=== PATIENT | male | born 1960 ===

== ENCOUNTER → 2018-02-08 21:29 | Outpatient (REF) | payer OTHER, SELFPAY ==
[2018-02-08 22:42] LABS: Add Manual Diff / Slide Review NO; Basophils Percent Auto 0.5 % (0-2); Eosinophils Percent Auto 4.1 % (2-4); Hematocrit 55.8 % (41-53); Hemoglobin 18.9 g/dL (13.5-17.5); Mean Corpuscular Hemoglobin 30.5 PG (26-34); Mean Corpuscular Volume 89.7 fL (80-100); Monocytes Percent Auto 9.1 % (3-14); Neutrophils Absolute Auto 4900 /uL (3000-5900); Neutrophils Percent Auto 62.3 % (50-75); Platelet Count 178 X10^3/uL (150-400); Red Blood Cell Count 6.22 X10^6/uL (4.5-5.9); Red Cell Distribution Width 14.4 % (11.6-14.8); White Blood Cell Count 7.8 X10^3/uL (4.5-11.0)
[2018-02-09 02:25] LABS: Alanine Aminotransferase 76 IU/L (21-72); Albumin 4.5 g/dL (3.5-5.0); Alkaline Phosphatase 58 U/L (38-126); Aspartate Aminotransferase 41 IU/L (17-59); BUN Creatinine Ratio 20.8 (6-22); Bilirubin Total 0.9 mg/dL (0.2-1.3); Blood Urea Nitrogen 25 mg/dL (9-20); Carbon Dioxide 25 mmol/L (22-32); Chloride 103 mmol/L (98-107); Estimated Glomerular Filt Rate > 60.0 mL/min (>60); Globulin 2.3 g/dL (1.7-4.1); Glucose 101 mg/dL (70-100); HEMOLYSIS 15 (0-50); Potassium 3.9 mmol/L (3.4-5.1); Sodium 142 mmol/L (137-145); Total Protein 6.8 g/dL (6.3-8.2)
[2018-02-10 14:21] LABS: Sex Hormone Binding Globulin 26 nmol/L (22-77)
[2018-02-10 16:12] LABS: Estradiol 31 pg/mL (< 40)
[2018-02-11 14:23] LABS: PSA Total 0.24 ng/mL (< 4.01)
[2018-02-12 15:36] LABS: Testosterone Total 376 ng/dL (250-1100)
== END ==
LOC: LAB 21:29
PROVIDERS: Visit Provider Naturopath
DX: E29.1 Testicular hypofunction (principal); M54.5 Low back pain; R94.4 Abnormal results of kidney function studies; R94.5 Abnormal results of liver function studies
CPT/HCPCS: 80053; 82670; 84153; 84154; 84270; 84402; 84403; 85025

== ENCOUNTER → 2018-02-17 22:22 | Outpatient (REF) | payer OTHER, SELFPAY ==
[2018-02-17 22:37] LABS: Add Manual Diff / Slide Review NO; Alanine Aminotransferase 74 IU/L (21-72); Albumin Globulin Ratio 1.9 (1.0-2.8); Alkaline Phosphatase 75 U/L (38-126); Aspartate Aminotransferase 37 IU/L (17-59); BUN Creatinine Ratio 20.8 (6-22); Basophils Percent Auto 0.3 % (0-2); Bilirubin Total 1.5 mg/dL (0.2-1.3); Blood Urea Nitrogen 25 mg/dL (9-20); C-Reactive Protein Quant 0.6 mg/dL (<1.0); Calcium 10.3 mg/dL (8.4-10.2); Carbon Dioxide 26 mmol/L (22-32); Chloride 99 mmol/L (98-107); Eosinophils Percent Auto 2.6 % (2-4); Estimated Glomerular Filt Rate > 60.0 mL/min (>60); Globulin 2.7 g/dL (1.7-4.1); Glucose 102 mg/dL (70-100); HEMOLYSIS < 15 (0-50); Hematocrit 57.5 % (41-53); Hemoglobin 20.1 g/dL (13.5-17.5); Lymphocytes Percent Auto 21.3 % (25-40); Mean Corpuscular HGB Conc 34.9 % (30-36); Mean Corpuscular Hemoglobin 30.7 PG (26-34); Monocytes Percent Auto 9.4 % (3-14); Neutrophils Absolute Auto 6100 /uL (3000-5900); Neutrophils Percent Auto 66.4 % (50-75); Platelet Count 203 X10^3/uL (150-400); Potassium 4.1 mmol/L (3.4-5.1); Red Blood Cell Count 6.53 X10^6/uL (4.5-5.9); Red Cell Distribution Width 14.1 % (11.6-14.8); Sodium 142 mmol/L (137-145); Total Protein 7.7 g/dL (6.3-8.2); Uric Acid 6.3 mg/dL (3.5-8.5); White Blood Cell Count 9.2 X10^3/uL (4.5-11.0)
== END ==
LOC: LAB 22:22
PROVIDERS: Visit Provider Naturopath
DX: M79.641 Pain in right hand (principal)
CPT/HCPCS: 80053; 84550; 85025; 86140

== ENCOUNTER → 2018-05-10 20:48 | Outpatient (REF) | payer OTHER, SELFPAY ==
[2018-05-10 21:39] LABS: Add Manual Diff / Slide Review NO; Basophils Absolute Auto 100 /uL (0-100); Basophils Percent Auto 0.8 % (0-2); Eosinophils Absolute Auto 100 /uL (0-450); Eosinophils Percent Auto 1.3 % (2-4); Hematocrit 54.7 % (41-53); Hemoglobin 18.2 g/dL (13.5-17.5); Lymphocytes Absolute Auto 1900 /uL (1100-4500); Mean Corpuscular HGB Conc 33.4 % (30-36); Mean Corpuscular Hemoglobin 29.8 PG (26-34); Mean Corpuscular Volume 89.3 fL (80-100); Monocytes Absolute Auto 600 /uL (0-900); Monocytes Percent Auto 7.7 % (3-14); Neutrophils Absolute Auto 5400 /uL (1500-7000); Neutrophils Percent Auto 67.2 % (50-75); Platelet Count 180 X10^3/uL (150-400); Red Blood Cell Count 6.12 X10^6/uL (4.5-5.9); White Blood Cell Count 8.1 X10^3/uL (4.5-11.0)
[2018-05-10 22:14] LABS: Ferritin 68.6 ng/mL (17.9-464)
== END ==
LOC: LAB 20:48
PROVIDERS: Visit Provider Physician Assistant
DX: E29.1 Testicular hypofunction (principal); D75.1 Secondary polycythemia
CPT/HCPCS: 36415; 82728; 85025

== ENCOUNTER → 2018-07-03 21:10 | Outpatient (REF) | payer OTHER, SELFPAY ==
[2018-07-03 21:36] LABS: Add Manual Diff / Slide Review NO; Basophils Absolute Auto 100 /uL (0-100); Basophils Percent Auto 0.7 % (0-2); Eosinophils Absolute Auto 100 /uL (0-450); Eosinophils Percent Auto 1.3 % (2-4); Hematocrit 56.3 % (41-53); Hemoglobin 19.1 g/dL (13.5-17.5); Lymphocytes Absolute Auto 1500 /uL (1100-4500); Lymphocytes Percent Auto 20.6 % (25-40); Mean Corpuscular Hemoglobin 29.7 PG (26-34); Mean Corpuscular Volume 87.5 fL (80-100); Monocytes Absolute Auto 600 /uL (0-900); Monocytes Percent Auto 7.7 % (3-14); Neutrophils Absolute Auto 5200 /uL (1500-7000); Neutrophils Percent Auto 69.7 % (50-75); Platelet Count 179 X10^3/uL (150-400); Red Blood Cell Count 6.44 X10^6/uL (4.5-5.9); Red Cell Distribution Width 13.8 % (11.6-14.8); White Blood Cell Count 7.5 X10^3/uL (4.5-11.0)
[2018-07-03 21:40] LABS: Alanine Aminotransferase 78 IU/L (21-72); Albumin 4.5 g/dL (3.5-5.0); Albumin Globulin Ratio 1.7 (1.0-2.8); Alkaline Phosphatase 70 U/L (38-126); Aspartate Aminotransferase 41 IU/L (17-59); Blood Urea Nitrogen 26 mg/dL (9-20); Calcium 9.9 mg/dL (8.4-10.2); Carbon Dioxide 26 mmol/L (22-32); Chloride 100 mmol/L (98-107); Estimated Glomerular Filt Rate 56.3 mL/min (>60); Globulin 2.6 g/dL (1.7-4.1); Glucose 104 mg/dL (80-110); HEMOLYSIS 19 (0-50); Sodium 139 mmol/L (137-145); Total Protein 7.1 g/dL (6.3-8.2)
[2018-07-06 16:12] LABS: PSA Total 2.65 ng/mL (< 4.01)
[2018-07-07 14:37] LABS: Estradiol 31 pg/mL (< 40)
[2018-07-10 16:08] LABS: Testosterone, Total 546.5
[2018-07-10 16:09] LABS: Testosterone,Free 13.9
== END ==
LOC: LAB 21:10
PROVIDERS: Visit Provider Naturopath
DX: D75.1 Secondary polycythemia (principal); E29.1 Testicular hypofunction; F50.81 Binge eating disorder
CPT/HCPCS: 36415; 80053; 82670; 84153; 84154; 84402; 84403; 85025